=== PATIENT | female | born 1990 | race Caucasian/White ===

== ENCOUNTER 2016-10-10 14:58 | Emergency (ER) | payer BC ==
[2016-10-10 15:06] VITALS: TEMP 99
--- NOTE | 2016-10-10 15:29 | ED ---
Extremity Problem HPI - General Chief complaint: Extremity Problem,Nontraumatic Stated complaint: [facility] Time Seen by Provider: 10/10/16 15:09 Source: patient Mode of arrival: ambulatory Limitations: no limitations - History of Present Illness Initial comments: This patient is a 26-year-old woman who presents to be evaluated for possible DVT. Patient states that she had had varicose vein stripping and injections last week. For about the past 3 days she has noted pain and swelling to one of the vein sites. She also noted an episode which her chest felt tight and she was short of breath. [facility], and they forwarded her here to see about possibility of DVT. Patient denies fever or chills, tachycardia, palpitations, lightheadedness or syncope. She has not had hemoptysis. She states that the chest symptoms were intermittent and that she is not having any symptoms now. MD Complaint: extremity pain -: days(s) Location: bilateral lower extremity History of Same: No Quality: dull Consistency: constant Improves with: nothing Worsens with: palpation Associated Symptoms: shortness of breath - Related Data Home Medications Medication Instructions Recorded Confirmed B12/Levomefolate Calcium/B-6 10/10/16 [Foltx Tablet] No Known Home Medications [No 10/10/16 10/10/16 Known Home Medications] Norgestimate-Ethinyl Estradiol 10/10/16 10/10/16 [Ortho Tri-Cyclen Lo Tablet] Allergies Allergy/AdvReac Type Severity Reaction Status Date / Time No Known Allergies Allergy Verified 10/10/16 15:07 Review of Systems ROS Statement: Those systems with pertinent positive or pertinent negative responses have been documented in the HPI. ROS Other: All systems not noted in ROS Statement are negative. Constitutional: Denies: fever, chills Respiratory: Reports: dyspnea. Denies: cough, wheezes, hemoptysis Cardiovascular: Reports: chest pain. Denies: palpitations, dyspnea on exertion , orthopnea, edema, syncope Gastrointestinal: Denies: abdominal pain, vomiting Musculoskeletal: Denies: back pain Skin: Denies: rash Neurological: Denies: headache, weakness, numbness Past Medical History Past Medical History: No Reported History History of Any Multi-Drug Resistant Organisms: None Reported Additional Past Surgical History / Comment(s): varicose vein Past Psychological History: No Psychological Hx Reported Smoking Status: Never smoker Past Alcohol Use History: None Reported Past Drug Use History: None Reported General Exam Limitations: no limitations General appearance: alert, in no apparent distress Head exam: Present: atraumatic, normocephalic Eye exam: Present: normal appearance. Absent: scleral icterus, conjunctival injection ENT exam: Present: normal oropharynx Respiratory exam: Present: normal lung sounds bilaterally. Absent: respiratory distress, wheezes, rales, rhonchi, stridor Cardiovascular Exam: Present: regular rate, normal rhythm, normal heart sounds. Absent: systolic murmur, diastolic murmur, rubs, gallop Extremities exam: Present: full ROM, normal capillary refill. Absent: tenderness, pedal edema, calf tenderness Back exam: Absent: CVA tenderness (R), CVA tenderness (L) Skin exam: Present: warm, dry, intact, normal color Course Vital Signs 10/10/16 15:01 Temperature 99 F Pulse Rate 67 Respiratory 20 Rate Blood Pressure 126/81 O2 Sat by Pulse 100 Oximetry Medical Decision Making - Lab Data Lab Results 10/10/16 Range/Units 15:15 D-Dimer 0.26 (<0.60) mg/L FEU Disposition Clinical Impression: Acute superficial venous thrombosis of both lower extremities Disposition: HOME SELF-CARE Condition: Good Instructions: Deep Venous Thrombosis (DC) Referrals: None,Stated [Primary Care Provider] - 1-2 days
--- NOTE | 2016-10-10 17:21 | US ---
EXAMINATION TYPE: US venous doppler duplex LE DATE OF EXAM: 10/10/2016 5:06 PM COMPARISON: NONE CLINICAL HISTORY: Pain. Recent ablation removal of varicosities bilaterally SIDE PERFORMED: Bilateral TECHNIQUE: The lower extremity deep venous system is examined utilizing real time linear array sonog ara with graded compression, doppler sonography and color-flow sonography. VESSELS IMAGED: External Iliac Vein (EIV) Common Femoral Vein Deep Femoral Vein Greater Saphenous Vein * Femoral Vein Popliteal Vein Small Saphenous Vein * Proximal Calf Veins (* superficial vessels) The GSV is thrombosed bilaterally from groin all the way into lower legs. Right Leg: Negative for DVT Left Leg: Negative for DVT Grayscale, color doppler, spectral doppler imaging performed of the deep veins of the lower extremiti es. There is normal flow, compressibility, vascular waveforms bilaterally. IMPRESSION: No ultrasound evidence for acute DVT in either lower extremity. Completely thrombosed greater saphenous vein or acute superficial thrombus or thrombophlebitis bilaterally is noted.
[2016-10-10 18:11] VITALS: BP 123/69; PULSE 71; RESP 18
== END 2016-10-10 18:08 | disposition home or self-care (01) ==
LOC: EC 14:58
DX: I82.813 Embolism and thrombosis of superficial veins of lower extremities, bilateral (principal); R06.02 Shortness of breath; R07.89 Other chest pain; Z79.3 Long term (current) use of hormonal contraceptives; Z79.899 Other long term (current) drug therapy
CPT/HCPCS: 36415; 85379; 93970; 99285